=== PATIENT | female | born 1990 | race Caucasian/White ===

== ENCOUNTER 2018-12-08 20:31 | Emergency (ER) | payer MEDICAID ==
[~2018-12-08] VITALS: Ht 152.4 cm; Wt 76.5 kg
[~2018-12-08 20:31] MED LIST: CLIN-96 PO; CLOT15CR5 TP; HYDR-3686 PO; MACROBID PO; NITR100C6 PO; ONDA4TAB6 PO; ONDA8TAB9 PO; PANT-47 PO; PRED20TA PO; PRENATAL ONE T1 EACH PO
[2018-12-08 20:37] VITALS: BP 140/74
[2018-12-08] MEDS ORDERED: LORazepam 1 MG tablet PO ONE (21:05)
[2018-12-08] MEDS ORDERED: metoclopramide 10mg tablet PO ONE (21:05)
[2018-12-08] MEDS ORDERED: metoclopramide 5 mg/ml inj IM ONE (21:15)
[2018-12-08] MEDS ORDERED: LORazepam 2 mg/ml vial IM ONE (21:30)
== END 2018-12-08 22:24 | disposition home or self-care (01) ==
LOC: ER 20:32
DX: R11.2 Nausea with vomiting, unspecified (principal); F41.9 Anxiety disorder, unspecified; J45.909 Unspecified asthma, uncomplicated; Z88.5 Allergy status to narcotic agent; Z79.899 Other long term (current) drug therapy
CPT/HCPCS: 96372; 99283; J2060; J2765; J8597

== ENCOUNTER 2019-03-20 17:06 | Emergency (ER) | payer MEDICAID ==
[~2019-03-20] VITALS: Ht 152.4 cm; Wt 74.0 kg
[2019-03-20 17:21] VITALS: BP 144/92
[2019-03-20] MEDS ORDERED: ketorolac trometh inj. 60 MG/2 ML VIAL IM ONE (17:50)
[2019-03-20] MEDS ORDERED: acetaminophen 325mg tablet PO ONE (17:50)
[2019-03-20] MEDS ORDERED: ACET-812 PO (17:57)
[2019-03-20] MEDS ORDERED: HYDR-3965 PO (17:57)
== END 2019-03-20 18:23 | disposition home or self-care (01) ==
LOC: ER 17:06
DX: S60.222A Contusion of left hand, initial encounter (principal); J45.909 Unspecified asthma, uncomplicated; Z88.5 Allergy status to narcotic agent; Z79.899 Other long term (current) drug therapy; Y04.0XXA Assault by unarmed brawl or fight, initial encounter; Y93.89 Activity, other specified; Y92.89 Other specified places as the place of occurrence of the external cause; Y99.9 Unspecified external cause status
CPT/HCPCS: 29125; 73130; 96372; 99283; J1885

== ENCOUNTER 2020-11-17 23:34 | Emergency (ER) | payer MEDICAID ==
[~2020-11-17] VITALS: Ht 152.4 cm; Wt 77.3 kg
[~2020-11-17 23:34] MED LIST changes: +ACET-812 PO; -CLIN-96 PO; +CLIN-97 PO; +CLOT15CR35 TP; -CLOT15CR5 TP
[2020-11-18] MEDS ORDERED: ondansetron/PF 4mg/2ml inj IV ONE (01:00)
[2020-11-18 01:23] LABS: BASOPHILS % (AUTO) 0.3 % (0-1); EOSINOPHILS % (AUTO) 0 % (0-6); HEMATOCRIT 42.7 % (35.0-45.0); HEMOGLOBIN 14.9 g/dl (12.0-16.0); LYMPHOCYTES # (AUTO) 0.8 X10'3 (1.1-4.8); LYMPHOCYTES % (AUTO) 8.1 % (21-51); MEAN CORPUSCULAR HEMOGLOBIN 32.5 PG (27.0-31.0); MEAN CORPUSCULAR HGB CONC 34.8 g/dL (33.0-36.5); MEAN CORPUSCULAR VOLUME 93.2 FL (78-98); MEAN PLATELET VOLUME 8.4 FL (7.4-10.4); MONOCYTES # (AUTO) 0.3 X10'3 (0-0.9); MONOCYTES % (AUTO) 2.9 % (2-12); NEUTROPHILS # (AUTO) 8.8 X10'3 (1.8-7.7); NEUTROPHILS % (AUTO) 88.7 % (42-75); PLATELET COUNT 338 X10'3 (140-440); RED BLOOD COUNT 4.59 X10'6 (4.20-5.60); RED CELL DISTRIBUTION WIDTH 12.5 % (11.5-14.5); WHITE BLOOD COUNT 9.9 X10'3 (4.5-11.0)
[2020-11-18 01:31] LABS: ALANINE AMINOTRANSFERASE 20 U/L (12-78); ALBUMIN 4.5 G/DL (3.4-5.0); ALBUMIN/GLOBULIN RATIO 1.2 (1.1-1.5); ALKALINE PHOSPHATASE 55 IU/L (46-116); ANION GAP 16 (8-16); ASPARTATE AMINO TRANSFERASE 20 U/L (10-37); BILIRUBIN,TOTAL 1.7 MG/DL (0.1-1.0); BLOOD UREA NITROGEN 12 MG/DL (7-18); BUN/CREATININE RATIO 11.9 (6.6-38.0); CALCIUM 9.1 MG/DL (8.5-10.1); CHLORIDE 104 MMOL/L (99-107); CREATININE 1.01 MG/DL (0.40-0.90); GLUCOSE 135 MG/DL (70-104); LIPASE 67 U/L (73-393); POTASSIUM 3.8 MMOL/L (3.5-5.1); SODIUM 140 MMOL/L (135-145); TOTAL CARBON DIOXIDE 20.5 MMOL/L (24-32); TOTAL PROTEIN 8.2 G/DL (6.4-8.2); eGFR 64 ML/MIN
[2020-11-18] MEDS ORDERED: LORazepam 2 mg/ml vial IV ONE (01:40)
[2020-11-18 02:24] LABS: CLARITY,URINE CLEAR (Clear); COLOR,URINE YELLOW (Yellow); GLUCOSE, URINE NEGATIVE (Neg); KETONES,URINE >=80 mg/dl (Neg); LEUKOCYTE ESTERASE ,URINE NEGATIVE (Neg); NITRITES, URINE NEGATIVE (Neg); OCCULT BLOOD,URINE NEGATIVE (Neg); PH,URINE 7.5 (4.8-8.0); PROTEIN,URINE 100 mg/dl (Neg)
[2020-11-18 02:26] LABS: URINE HCG NEGATIVE (NEG)
[2020-11-18 02:30] LABS: BACTERIA,URINE 1+ /HPF (Neg); MUCUS STRANDS MANY /LPF (Neg); RBC,URINE 0-2 /HPF (0-2); SQUAMOUS EPITHELIAL CELL,UR FEW /LPF (FEW); WBC,URINE 0-4 /HPF (0-4)
[2020-11-18 02:47] LABS: UA COLLECTION TYPE CLN CATCH MIDSTREAM
[2020-11-18 03:28] VITALS: BP 110/57
== END 2020-11-18 03:31 | disposition home or self-care (01) ==
LOC: ER 23:34
DX: F41.9 Anxiety disorder, unspecified (principal); R11.2 Nausea with vomiting, unspecified
CPT/HCPCS: 36415; 80053; 81001; 81025; 83690; 85025; 96374; 96375; 99284; J2060; J2405

== ENCOUNTER 2021-09-29 11:47 | Emergency (ER) | payer MEDICAID ==
[~2021-09-29] VITALS: Ht 152.4 cm; Wt 75.0 kg
[2021-09-29 12:18] LABS: CLARITY,URINE SLIGHTLY CLOUDY (Clear); COLOR,URINE YELLOW (Yellow); GLUCOSE, URINE NEGATIVE (Neg); KETONES,URINE >=80 mg/dl (Neg); LEUKOCYTE ESTERASE ,URINE NEGATIVE (Neg); NITRITES, URINE NEGATIVE (Neg); OCCULT BLOOD,URINE NEGATIVE (Neg); PH,URINE 8.5 (4.8-8.0); PROTEIN,URINE 30 mg/dl (Neg); UROBILINOGEN,URINE 0.2 E.U/dL (0.2-1.0)
[2021-09-29 12:21] LABS: URINE HCG NEGATIVE (NEG)
[2021-09-29 12:24] LABS: BASOPHILS % (AUTO) 0.4 % (0-1); EOSINOPHILS % (AUTO) 0.1 % (0-6); HEMATOCRIT 41.6 % (35.0-45.0); HEMOGLOBIN 14.2 g/dl (12.0-16.0); LYMPHOCYTES # (AUTO) 0.8 X10'3 (1.1-4.8); LYMPHOCYTES % (AUTO) 8.4 % (21-51); MEAN CORPUSCULAR HEMOGLOBIN 31.6 PG (27.0-31.0); MEAN CORPUSCULAR HGB CONC 34.2 g/dL (33.0-36.5); MEAN CORPUSCULAR VOLUME 92.5 FL (78-98); MEAN PLATELET VOLUME 8.5 FL (7.4-10.4); MONOCYTES # (AUTO) 0.3 X10'3 (0-0.9); MONOCYTES % (AUTO) 3.3 % (2-12); NEUTROPHILS % (AUTO) 87.8 % (42-75); PLATELET COUNT 319 X10'3 (140-440); RED CELL DISTRIBUTION WIDTH 12.2 % (11.5-14.5); WHITE BLOOD COUNT 9.1 X10'3 (4.5-11.0)
[2021-09-29 12:25] LABS: UA COLLECTION TYPE CLN CATCH MIDSTREAM
[2021-09-29 12:27] LABS: ALANINE AMINOTRANSFERASE 15 U/L (12-78); ALBUMIN 4.3 G/DL (3.4-5.0); ALBUMIN/GLOBULIN RATIO 1.2 (1.1-1.5); ALKALINE PHOSPHATASE 40 IU/L (46-116); ANION GAP 15 (8-16); ASPARTATE AMINO TRANSFERASE 17 U/L (10-37); BILIRUBIN,TOTAL 0.9 MG/DL (0.1-1.0); BLOOD UREA NITROGEN 9 MG/DL (7-18); BUN/CREATININE RATIO 9.2 (6.6-38.0); CHLORIDE 108 MMOL/L (99-107); CREATININE 0.98 MG/DL (0.40-0.90); GLUCOSE 131 MG/DL (70-104); LIPASE 81 U/L (73-393); POTASSIUM 3.2 MMOL/L (3.5-5.1); SODIUM 143 MMOL/L (135-145); TOTAL CARBON DIOXIDE 20.4 MMOL/L (24-32); TOTAL PROTEIN 7.9 G/DL (6.4-8.2); eGFR 66 ML/MIN
[2021-09-29 12:30] LABS: RBC,URINE 0-2 /HPF (0-2); WBC,URINE 0-4 /HPF (0-4)
[2021-09-29 12:31] LABS: BACTERIA,URINE 1+ /HPF (Neg); HYALINE CASTS 0-3 /LPF (NEGATIVE); MUCUS STRANDS MODERATE /LPF (Neg); SQUAMOUS EPITHELIAL CELL,UR MANY /LPF (FEW)
[2021-09-29] MEDS ORDERED: normal saline 1000ML IV soln IVB ONE ×3 (14:00→15:05)
[2021-09-29] MEDS ORDERED: morphine 4 MG/ML inj SYRINge IV ONE (14:00)
[2021-09-29] MEDS ORDERED: ondansetron/PF 4mg/2ml inj IV ONE (14:00)
[2021-09-29] MEDS ORDERED: LORazepam 2 mg/ml vial IV ONE (14:15)
--- NOTE | 2021-09-29 15:09 | NUR ---
provider at bedside. pt ok'd for ice chips
[2021-09-29] MEDS ORDERED: ONDA4TAB12 PO (16:04)
[2021-09-29 16:10] VITALS: BP 136/84
--- NOTE | 2021-09-29 16:10 | NUR ---
pt tolerating ice chips, second liter of fluids finished.
== END 2021-09-29 16:20 | disposition home or self-care (01) ==
LOC: ER 11:48
DX: R11.2 Nausea with vomiting, unspecified (principal); F41.9 Anxiety disorder, unspecified; J45.909 Unspecified asthma, uncomplicated; Z98.51 Tubal ligation status; Z98.890 Other specified postprocedural states; Z88.8 Allergy status to other drugs, medicaments and biological substances; Z79.2 Long term (current) use of antibiotics; Z79.899 Other long term (current) drug therapy
CPT/HCPCS: 36415; 80053; 81001; 81025; 83690; 85025; 96374; 99283; J2060; J7030

== ENCOUNTER 2021-09-30 10:03 | Emergency (ER) | payer MEDICAID ==
[~2021-09-30] VITALS: Ht 152.4 cm; Wt 75.0 kg
[~2021-09-30 10:03] MED LIST changes: +ONDA4TAB12 PO
[2021-09-30] MEDS ORDERED: normal saline 1000ML IV soln IV ONE (10:20)
[2021-09-30] MEDS ORDERED: LORazepam 2 mg/ml vial IV ONE (10:20)
[2021-09-30] MEDS ORDERED: haloperidol lactate 5mg/ml inj IM ONE (10:20)
[2021-09-30 10:44] LABS: BASOPHILS % (AUTO) 0.3 % (0-1); EOSINOPHILS % (AUTO) 0.1 % (0-6); HEMATOCRIT 39.5 % (35.0-45.0); HEMOGLOBIN 13.4 g/dl (12.0-16.0); LYMPHOCYTES # (AUTO) 1.1 X10'3 (1.1-4.8); LYMPHOCYTES % (AUTO) 9.5 % (21-51); MEAN CORPUSCULAR HEMOGLOBIN 31.4 PG (27.0-31.0); MEAN CORPUSCULAR HGB CONC 33.8 g/dL (33.0-36.5); MEAN PLATELET VOLUME 8.3 FL (7.4-10.4); MONOCYTES # (AUTO) 0.3 X10'3 (0-0.9); MONOCYTES % (AUTO) 2.8 % (2-12); NEUTROPHILS # (AUTO) 9.9 X10'3 (1.8-7.7); NEUTROPHILS % (AUTO) 87.3 % (42-75); PLATELET COUNT 334 X10'3 (140-440); RED BLOOD COUNT 4.25 X10'6 (4.20-5.60); RED CELL DISTRIBUTION WIDTH 12.5 % (11.5-14.5); WHITE BLOOD COUNT 11.3 X10'3 (4.5-11.0)
[2021-09-30 10:59] LABS: ALANINE AMINOTRANSFERASE 17 U/L (12-78); ALBUMIN 4.2 G/DL (3.4-5.0); ALBUMIN/GLOBULIN RATIO 1.2 (1.1-1.5); ALKALINE PHOSPHATASE 39 IU/L (46-116); ANION GAP 14 (8-16); ASPARTATE AMINO TRANSFERASE 17 U/L (10-37); BLOOD UREA NITROGEN 8 MG/DL (7-18); BUN/CREATININE RATIO 9.3 (6.6-38.0); CALCIUM 8.6 MG/DL (8.5-10.1); CHLORIDE 112 MMOL/L (99-107); CREATININE 0.86 MG/DL (0.40-0.90); GLUCOSE 112 MG/DL (70-104); POTASSIUM 3.1 MMOL/L (3.5-5.1); SODIUM 146 MMOL/L (135-145); TOTAL CARBON DIOXIDE 20.3 MMOL/L (24-32); TOTAL PROTEIN 7.6 G/DL (6.4-8.2); eGFR 77 ML/MIN
[2021-09-30] MEDS ORDERED: potassium Cl 20 mEq SR tablet PO STA (11:46)
[2021-09-30] MEDS ORDERED: potassium Cl 10 mEq/100mL bag IV ONE (11:50)
[2021-09-30 15:09] VITALS: BP 124/82
== END 2021-09-30 15:34 | disposition home or self-care (01) ==
LOC: ER 10:04
DX: R11.15 Cyclical vomiting syndrome unrelated to migraine (principal); R11.2 Nausea with vomiting, unspecified; E87.6 Hypokalemia; J45.909 Unspecified asthma, uncomplicated; F41.9 Anxiety disorder, unspecified; Z98.51 Tubal ligation status; Z98.890 Other specified postprocedural states; Z88.8 Allergy status to other drugs, medicaments and biological substances; Z79.2 Long term (current) use of antibiotics; Z79.899 Other long term (current) drug therapy
CPT/HCPCS: 36415; 80053; 83735; 85025; 93005; 96365; 96366; 96372; 96375; 99284; J1630; J2060; J3480; J7030

== ENCOUNTER 2021-10-21 14:45 | Emergency (ER) | payer MEDICAID ==
[~2021-10-21] VITALS: Ht 152.4 cm; Wt 72.7 kg
[2021-10-21 15:06] VITALS: BP 163/98
[2021-10-21 15:30] LABS: BASOPHILS % (AUTO) 0.2 % (0-1); EOSINOPHILS % (AUTO) 0 % (0-6); HEMATOCRIT 42.6 % (35.0-45.0); HEMOGLOBIN 14.3 g/dl (12.0-16.0); LYMPHOCYTES # (AUTO) 0.7 X10'3 (1.1-4.8); LYMPHOCYTES % (AUTO) 6.8 % (21-51); MEAN CORPUSCULAR HEMOGLOBIN 30.6 PG (27.0-31.0); MEAN CORPUSCULAR HGB CONC 33.6 g/dL (33.0-36.5); MEAN CORPUSCULAR VOLUME 91.2 FL (78-98); MEAN PLATELET VOLUME 8.4 FL (7.4-10.4); MONOCYTES # (AUTO) 0.4 X10'3 (0-0.9); MONOCYTES % (AUTO) 3.9 % (2-12); NEUTROPHILS # (AUTO) 9.6 X10'3 (1.8-7.7); NEUTROPHILS % (AUTO) 89.1 % (42-75); PLATELET COUNT 328 X10'3 (140-440); RED BLOOD COUNT 4.68 X10'6 (4.20-5.60); RED CELL DISTRIBUTION WIDTH 12.9 % (11.5-14.5); WHITE BLOOD COUNT 10.7 X10'3 (4.5-11.0)
[2021-10-21 15:44] LABS: ALANINE AMINOTRANSFERASE 21 U/L (12-78); ALBUMIN 4.6 G/DL (3.4-5.0); ALBUMIN/GLOBULIN RATIO 1.3 (1.1-1.5); ALKALINE PHOSPHATASE 48 IU/L (46-116); ANION GAP 16 (8-16); ASPARTATE AMINO TRANSFERASE 18 U/L (10-37); BILIRUBIN,TOTAL 1.1 MG/DL (0.1-1.0); BLOOD UREA NITROGEN 12 MG/DL (7-18); BUN/CREATININE RATIO 11.3 (6.6-38.0); CALCIUM 9.5 MG/DL (8.5-10.1); CHLORIDE 105 MMOL/L (99-107); CREATININE 1.06 MG/DL (0.40-0.90); GLUCOSE 150 MG/DL (70-104); LIPASE 52 U/L (73-393); POTASSIUM 3.5 MMOL/L (3.5-5.1); SODIUM 141 MMOL/L (135-145); TOTAL CARBON DIOXIDE 19.8 MMOL/L (24-32); TOTAL PROTEIN 8.1 G/DL (6.4-8.2); eGFR 60 ML/MIN
[2021-10-21 15:52] LABS: URINE HCG NEGATIVE (NEG)
[2021-10-21 15:57] LABS: CLARITY,URINE CLOUDY (Clear); COLOR,URINE YELLOW (Yellow); GLUCOSE, URINE NEGATIVE (Neg); KETONES,URINE >=80 mg/dl (Neg); LEUKOCYTE ESTERASE ,URINE NEGATIVE (Neg); NITRITES, URINE NEGATIVE (Neg); OCCULT BLOOD,URINE NEGATIVE (Neg); PH,URINE 7.5 (4.8-8.0); PROTEIN,URINE 30 mg/dl (Neg); UROBILINOGEN,URINE 0.2 E.U/dL (0.2-1.0)
[2021-10-21] MEDS ORDERED: normal saline 1000ml 1,000 ML IV ONE (16:15)
[2021-10-21] MEDS ORDERED: normal saline 1000ML IV soln IVB ONE ×2 (16:15→16:20)
[2021-10-21] MEDS ORDERED: LORazepam 2 mg/ml vial IV ONE (16:15)
[2021-10-21 16:20] LABS: UA COLLECTION TYPE CLN CATCH MIDSTREAM
[2021-10-21 16:21] LABS: MUCUS STRANDS MANY /LPF (Neg); SQUAMOUS EPITHELIAL CELL,UR MANY /LPF (FEW)
[2021-10-21 16:22] LABS: BACTERIA,URINE 1+ /HPF (Neg); RBC,URINE 0-2 /HPF (0-2); WBC,URINE 0-4 /HPF (0-4)
[2021-10-21] MEDS ORDERED: ondansetron/PF 4mg/2ml inj IV ONE (16:40)
[2021-10-21 16:50] LABS: ETHANOL < 0.010 GM/DL (0.0-0.010)
--- NOTE | 2021-10-21 17:00 | NUR ---
pt stated she was driving and did not want ativan. returned to [facility] with supervisor international reservationseric shepard aware
[2021-10-21 17:17] LABS: URINE AMPHETAMINE SCREEN NEGATIVE (Neg); URINE BARBITUATE SCREEN NEGATIVE (Neg); URINE BENZODIAZEPINES SCREEN NEGATIVE (Neg); URINE CANNABINOID SCREEN POSITIVE (Neg); URINE COCAINE SCREEN NEGATIVE (Neg); URINE METHADONE SCREEN NEGATIVE (Neg); URINE OPIATE SCREEN NEGATIVE (Neg); URINE PHENCYCLIDINE SCREEN NEGATIVE (Neg)
[2021-10-21] MEDS ORDERED: dicyclomine 10 MG capsule PO ONE (17:40)
== END 2021-10-21 18:01 | disposition home or self-care (01) ==
LOC: ER 14:45
DX: K52.9 Noninfective gastroenteritis and colitis, unspecified (principal); E86.0 Dehydration; R11.10 Vomiting, unspecified; R10.84 Generalized abdominal pain; J45.909 Unspecified asthma, uncomplicated; F41.9 Anxiety disorder, unspecified; F12.90 Cannabis use, unspecified, uncomplicated; Z98.51 Tubal ligation status; Z88.8 Allergy status to other drugs, medicaments and biological substances; Z79.2 Long term (current) use of antibiotics; Z79.899 Other long term (current) drug therapy
CPT/HCPCS: 36415; 80053; 80305; 80320; 81001; 81025; 83690; 85025; 96361; 96374; 99284; J2405; J7030